=== PATIENT | female | born 1975 | race Two or more races ===

== ENCOUNTER 2020-01-20 12:08 | Day surgery (SDC) | payer BC ==
[~2020-01-20] VITALS: Ht 165.1 cm; Wt 97.2 kg
[2020-01-20] MEDS ORDERED: LACTATED RINGERS 1,000 ML IV SCH (12:38)
[2020-01-20 12:39] VITALS: BP 124/83
[2020-01-20 13:01] LABS: HCG UR SG 1.023 (1.003-1.030)
[2020-01-20] MEDS ORDERED: LIDOCAINE 1%-EPI 1:100K, 20ML ONE (13:39)
[2020-01-20] MEDS ORDERED: ROPIvacaine/PF 0.5%, 30 ML ONE (13:39)
[2020-01-20] MEDS ORDERED: MIDAZOLAM 1 MG/ML, 2ML ONE (13:55)
[2020-01-20] MEDS ORDERED: FENTANYL PF 100 MCG/2ML ONE ×3 (13:55→15:04)
[2020-01-20] MEDS ORDERED: PROPOFOL 10 MG/ML, 20ML ONE (13:57)
[2020-01-20] MEDS ORDERED: SODIUM CHLORIDE 0.9% PF 10ML ONE (13:57)
[2020-01-20] MEDS ORDERED: CEFAZOLIN 1,000 MG ONE ×2 (13:57)
[2020-01-20] MEDS ORDERED: LIDOCAINE-MPF 2% ,5ML ONE (13:57)
[2020-01-20] MEDS ORDERED: HYDROmorphone 2 MG/ML, 1ML IVPush PRN (14:00)
[2020-01-20] MEDS ORDERED: LABETALOL 5MG/ML, 20ML IV PRN (14:00)
[2020-01-20] MEDS ORDERED: EPHEDRINE 50 MG/ML, 1ML IVPush PRN (14:00)
[2020-01-20] MEDS ORDERED: OXYcodone 5 MG/5 ML ORAL.SOL UDC PO PRN (14:00)
[2020-01-20] MEDS ORDERED: hydrALAzine 20 MG/ML, 1ML IV PRN (14:00)
[2020-01-20] MEDS ORDERED: FENTANYL PF 100 MCG/2ML IV PRN (14:00)
[2020-01-20] MEDS ORDERED: ONDANSETRON 2MG/ML, 2ML IV PRN (14:00)
[2020-01-20] MEDS ORDERED: MEPERIDINE/PF 25MG/ML,1ML IVPush PRN (14:00)
[2020-01-20] MEDS ORDERED: ACETAMINOPHEN 325 MG TABLET PO PRN (14:00)
[2020-01-20] MEDS ORDERED: PROMETHAZINE 25 MG/ML, 1ML IV PRN (14:00)
[2020-01-20] MEDS ORDERED: LIDOCAINE 1%-EPI 1:100K, 20ML INFIL ONE (14:08)
[2020-01-20] MEDS ORDERED: KETOROLAC 30 MG/1 ML ONE (14:09)
[2020-01-20] MEDS ORDERED: DEXAMETHASONE 4 MG/ML, 1ML ONE ×2 (14:12)
[2020-01-20] MEDS ORDERED: ONDANSETRON 2MG/ML, 2ML ONE (14:12)
[2020-01-20] MEDS ORDERED: ROPIvacaine/PF 0.5%, 30 ML INFIL ONE (14:15)
[2020-01-20] MEDS ORDERED: OXYcodone 5 MG/5 ML ORAL.SOL UDC ONE (15:04)
[2020-01-20] MEDS ORDERED: ACETAMINOPHEN 650 MG/20.3 ML UDC ONE (15:04)
== END 2020-01-20 17:10 | disposition home or self-care (01) ==
LOC: OUT 12:08
PROVIDERS: ATTEND Orthopaedic Surgery
DX: S83.211A Bucket-handle tear of medial meniscus, current injury, right knee, initial encounter (principal); X58.XXXA Exposure to other specified factors, initial encounter; M65.861 Other synovitis and tenosynovitis, right lower leg; Y93.89 Activity, other specified; Y92.89 Other specified places as the place of occurrence of the external cause; Y99.8 Other external cause status; Z79.899 Other long term (current) drug therapy; Z98.890 Other specified postprocedural states; Z87.891 Personal history of nicotine dependence; Z72.89 Other problems related to lifestyle; Z98.51 Tubal ligation status
CPT/HCPCS: 29881; 81025; J0690; J1100; J1885; J2250; J2405; J2704; J2795; J3010; J3490; J7120